=== PATIENT | male | born 1930 | race African-American/Black ===

== ENCOUNTER 2017-01-01 19:49 | Emergency (ER) | payer OTHER ==
[~2017-01-01] VITALS: Ht 167.6 cm; Wt 81.8 kg
[~2017-01-01 19:49] MED LIST: CLOP75 PO; HYDR25TA PO; LIB25 PO; LORA10TA7 PO; METO-325 PO; OMEP20 PO
[2017-01-01 22:00] VITALS: BP 142/76
== END 2017-01-01 22:16 | disposition home or self-care (01) ==
LOC: EMS 19:51
DX: S00.31XA Abrasion of nose, initial encounter (principal); I11.9 Hypertensive heart disease without heart failure; I50.9 Heart failure, unspecified; E78.00 Pure hypercholesterolemia, unspecified; Z95.0 Presence of cardiac pacemaker; Z88.5 Allergy status to narcotic agent; Z88.8 Allergy status to other drugs, medicaments and biological substances; Z88.0 Allergy status to penicillin; X58.XXXA Exposure to other specified factors, initial encounter; Y93.89 Activity, other specified; Y92.89 Other specified places as the place of occurrence of the external cause; Y99.8 Other external cause status
CPT/HCPCS: 99281

== ENCOUNTER 2017-01-17 16:47 | Emergency (ER) | payer OTHER ==
[~2017-01-17] VITALS: Ht 167.6 cm; Wt 77.3 kg
[2017-01-17] MEDS ORDERED: NAPR-58 PO (16:59)
[2017-01-17] MEDS ORDERED: APIX2.5T PO (16:59)
[2017-01-17] MEDS ORDERED: FOLI1 PO (16:59)
[2017-01-17 18:09] VITALS: BP 153/80
== END 2017-01-17 18:15 | disposition home or self-care (01) ==
LOC: EMS 16:50
DX: M79.1 Myalgia (principal); I11.0 Hypertensive heart disease with heart failure; I50.9 Heart failure, unspecified; E78.00 Pure hypercholesterolemia, unspecified; Z88.8 Allergy status to other drugs, medicaments and biological substances; Z88.5 Allergy status to narcotic agent; Z88.0 Allergy status to penicillin; V49.88XA Car occupant (driver) (passenger) injured in other specified transport accidents, initial encounter; Y93.89 Activity, other specified; Y92.89 Other specified places as the place of occurrence of the external cause; Y99.8 Other external cause status
CPT/HCPCS: 99282